=== PATIENT | male | born 1970 | race African-American/Black ===

== ENCOUNTER 2020-02-09 15:02 | Emergency (ER) | payer OTHER ==
[2020-02-09 15:25] VITALS: BP 129/80; PULSE 74; TEMP 97.9; BMI 23.7
--- NOTE | 2020-02-09 15:57 | PDOC ---
History of Present Illness - General Chief Complaint: Eye Problem Stated Complaint: EYE INJURY Time Seen by Provider: 02/09/20 15:13 History Source: Patient Exam Limitations: No Limitations - History of Present Illness Initial Comments: 02/09/20 16:31 HISTORY OF PRESENT ILLNESS: 49-year-old male presents emergency department for evaluation of left eye irritation starting last night. Patient reports she tried to remove his contact lenses last night after he had multiple alcoholic beverages report he had a difficult time removing. He woke up this morning he noted that his contact lenses were in the case but he had pain to his left eye which he noted to be red. He denies any blurry vision in his left eye or photophobia. No recent travel or sick contacts. PAST MEDICAL HISTORY: Denies past medical history SURGICAL HISTORY: Denies ALLERGIES: No known drug allergies REVIEW OF SYSTEMS General/Constitutional: Denies fever or chills. Denies weakness, weight change. HEENT: See HPI Cardiovascular: Denies chest pain or shortness of breath. Respiratory: Denies cough, wheezing, or hemoptysis. Gastrointestinal: Denies nausea, vomiting, diarrhea or constipation. Denies re ctal bleeding. Genitourinary: Denies dysuria, frequency, or change in urination. Musculoskeletal: Denies joint or muscle swelling or pain. Denies neck or back pain. Skin and breasts: Denies rash or easy bruising. Neurologic: Denies headache, vertigo, loss of consciousness, or loss of sensation. Psychiatric: Denies depression or anxiety. Endocrine: Denies increased thirst. Denies abnormal weight change. Hematologic/Lymphatic: Denies anemia, easy bleeding, or history of blood clots. Allergic/Immunologic: Denies hives or skin allergy. Denies latex allergy. PHYSICAL EXAM General Appearance: Well-appearing, appropriately dressed. No apparent distress, no intoxication. HEENT: EOMI, PERRLA, normal ENT inspection, normal voice, TMs normal, pharynx normal. No conjunctival pallor. No photophobia, scleral icterus. Conjunctiva is erythematous with swelling to the left upper eyelid. Neck: Supple. Trachea midline. No tenderness, rigidity, carotid bruit, stridor, lymphadenopathy, or thyromegaly. Respiratory/Chest: Lungs CTAB. No shortness of breath, chest tenderness, respiratory distress, accessory muscle use. No crackles, rales, rhonchi, stridor, wheezing, dullness Cardiovascular: RRR. S1, S2. No JVD, murmur, bradycardia, tachycardia. Neurologic: thread spinner II-XII intact. Fully oriented, alert. Appropriate mood/affect. Motor strength 5/5. No appreciable EOM palsy, facial droop or sensory deficit. Past History - Medical History Allergies/Adverse Reactions: Allergies Allergy/AdvReac Type Severity Reaction Status Date / Time No Known Allergies Allergy Verified 02/09/20 15:12 Home Medications: Ambulatory Orders Omeprazole [Prilosec] 0 mg PO DAILY 02/04/15 Omeprazole 20 mg PO AC 30 Days #30 tablet. 01/03/20 Ofloxacin 0.3% Ophth Soln [Ocuflox -] 2 drop OS Q4H #1 bottle 02/09/20 Asthma: Yes COPD: No CHF: No GI Disorders: Yes (Gerd) - Immunization History Immunization Up to Date: Yes - Psycho-Social/Smoking History Smoking History: Current every day smoker Have you smoked in the past 12 months: Yes Number of Cigarettes Smoked Daily: 6 Information on smoking cessation initiated: No 'Breaking Loose' booklet given: 01/13/14 - Substance Abuse Hx (Audit-C & DAST Scrn) How often the patient has a drink containing alcohol: 2-4 times / month Score: In Men: 4 or > Positive; In Women: 3 or > Positive: 2 Screen Result (Pos requires Nsg. Audit-10AR): Negative In the last yr the pt used illegal drug/Rx for NonMed reason: No Score: Yes response is considered Positive: 0 Screen Result (Positive result requires Nsg. DAST-10): Negative *Physical Exam - Vital Signs Last Vital Signs Temp Pulse Resp BP Pulse Ox 97.9 F 74 18 129/80 99 02/09/20 15:11 02/09/20 15:11 02/09/20 15:11 02/09/20 15:11 02/09/20 15:11 Medical Decision Making - Medical Decision Making 02/09/20 16:33 A/P: 49-year-old male with left eye pain since awakening today EYE EXAMINATION: Visual acuity: 20/20 in the left eye, 20/20 in the right eye, near, uncorrected The lashes are normal. Left upper eyelid with swelling present. No erythema noted. Extraocular movements are intact. The conjunctiva is erythematous with scleral injection extending to the limbus. The corneal surface is normal post tetracaine and fluorescein. There is no corneal abrasion or foreign body. There is no abnormal fluorescein uptake. The pupils are equal, round and reactive to light. Given eyelid swelling is likely blepharitis. Instructions on blepharitis care have been provided to the patient and a prescription for ofloxacin drops has been sent to patient's preferred pharmacy. Patient has been instructed not to insert contact lenses until he is evaluated by ophthalmology and he is to throw away the previously used contacts. I discussed the physical exam findings, ancillary test results and final diagnoses with the patient. I answered all of the patient's questions. The patient was satisfied with the care received and felt comfortable with the discharge plan and treatment plan. The patient will call their primary care physician within 24 hours to arrange follow-up and will return to the Emergency Department with any new, persistent or worsening symptoms. Portions of this note have been documented using voice recognition software. As a result, errors may occur in the piano mechanic apprentice process. Effort has been made to correct all grammatical and piano mechanic apprentice error, but some may have been missed which may produce sporadic inaccurate piano mechanic apprentice or nonsensical phrases. Discharge - Discharge Information Problems reviewed: Yes Clinical Impression/Diagnosis: Blepharitis of eyelid of left eye Qualifiers: Blepharitis type: unspecified type Eyelid: upper Qualified Code(s): H01.004 - Unspecified blepharitis left upper eyelid Condition: Stable Disposition: HOME - Admission No - Additional Discharge Information Prescriptions: Ofloxacin 0.3% Ophth Soln [Ocuflox -] 2 drop OS Q4H #1 bottle - Follow up/Referral Referrals: Dulce Sesay MD [Primary Care Provider] - Gómez Ohara MD [Staff Physician] - - Patient Discharge Instructions Patient Printed Discharge Instructions: DI for Blepharitis Additional Instructions: Rest, avoid rubbing eyes Wash hands frequently as this is very contagious Wash hands, use eye drops as directed, wash hands after use Do not share eye ointment with other person to may become infected as this will infect them Do not replace contact lenses that have been previously worn. Do not use contact lenses until directed to by automotive services manager. Ofloxacin 2 drops left eye every 4 hours while awake Avoid contact with others until redness and discharge is gone from eyes. Followup with ophthalmology or private physician as needed - Post Discharge Activity
== END 2020-02-09 16:00 | disposition home or self-care (01) ==
LOC: JER 15:02 → JERFT 15:02
DX: H01.004 Unspecified blepharitis left upper eyelid (principal)
CPT/HCPCS: 99283-25